=== PATIENT | female | born 1975 | race African-American/Black ===

== ENCOUNTER 2016-03-19 12:12 | Outpatient (CLI) ==
[2016-01-08 10:00] VITALS: BMI 52.0
[2016-03-19 12:58] LABS: ALBUMIN 3.8 g/dL (3.4-5.0); ALBUMIN/GLOBULIN RATIO 0.88; ANION GAP 9.7; BILIRUBIN,TOTAL 0.5 mg/dL (0.00-1.20); BUN/CREATININE RATIO 12.64; CALCIUM 9.2 mg/dL (8.2-10.2); CREATININE 0.87 mg/dL (0.60-1.30); POTASSIUM 3.7 mmol/L (3.5-5.10); TOTAL PROTEIN 8.1 g/dL (6.4-8.2)
--- NOTE | 2016-03-19 13:22 | DI ---
EXAM: Abdomen one view HISTORY: Unspecified abdominal pain COMPARISON: CT 01/09/2016 TECHNIQUE: Single view abdomen was performed. FINDINGS: There are no dilated loops of small bowel. There is air and stool throught the colon. The re are no abnormal calcifications. There are no acute abnormalities of the bones. There are degenera tive changes in the spine. IMPRESSION: Nonobstructive bowel gas pattern. No urinary tract calculi identified.
== END 2016-03-19 12:13 | disposition home or self-care (01) ==
LOC: RAD 12:12
PROVIDERS: ATTEND Nurse Practitioner Family
DX: R10.9 Unspecified abdominal pain (principal)
CPT/HCPCS: 36415; 80053

== ENCOUNTER 2016-08-31 10:40 | Outpatient (CLI) ==
[2016-01-08 10:00] VITALS: BMI 52.0
[2016-08-31 11:06] LABS: BASOPHILS % (AUTO) 0.2 % (0.0-3.0); EOSINOPHILS # (AUTO) 0.3 K/ul (0.0-0.7); EOSINOPHILS % (AUTO) 5.2 % (0.0-7.0); HEMATOCRIT 37.2 % (37.0-47.0); IMMATURE GRANULOCYTE % (AUTO) 0.2 % (0.0-5.0); LYMPHOCYTES # (AUTO) 1.8 K/uL (0.60-3.4); LYMPHOCYTES % (AUTO) 33.5 (10.0-50.0); MEAN CORPUSCULAR HEMOGLOBIN 29.7 pg (27.0-31.0); MEAN CORPUSCULAR HGB CONC 34.9 (31.8-35.4); MEAN CORPUSCULAR VOLUME 84.9 fl (81.0-99.0); MONOCYTES # (AUTO) 0.6 K/uL (0.4-2.0); MONOCYTES % (AUTO) 10.2 (0-10); NEUTROPHILS # (AUTO) 2.8 K/ul (2.0-6.9); NEUTROPHILS % (AUTO) 50.7; PLATELET COUNT 319 10^3/uL (140-440); RED BLOOD COUNT 4.38 10^6/ul (4.20-5.40); WHITE BLOOD COUNT 5.41 K/ul (4.6-10.2)
[2016-08-31 11:10] LABS: BILIRUBIN,URINE Negative (NEGATIVE); KETONES,URINE Negative (NEGATIVE); LEUKOCYTE ESTERASE ,URINE Negative (NEGATIVE); NITRITE,URINE Negative (NEGATIVE); PROTEIN,URINE Negative (NEGATIVE); URINE, BLOOD Negative (NEGATIVE)
[2016-08-31 11:38] LABS: ADD URINE MICROSCOPIC NO
[2016-08-31 11:47] LABS: ALBUMIN 3.7 g/dL (3.4-5.0); ALBUMIN/GLOBULIN RATIO 0.88; ANION GAP 12.7; BILIRUBIN,TOTAL 0.26 mg/dL (0.00-1.20); BUN/CREATININE RATIO 15.47; CALCIUM 9.2 mg/dL (8.2-10.2); CHOL/HDL RATIO 4.5 (4.5-5.5); CREATININE 0.84 mg/dL (0.60-1.30); POTASSIUM 3.7 mmol/L (3.5-5.10); TOTAL PROTEIN 7.9 g/dL (6.4-8.2)
--- NOTE | 2016-08-31 13:18 | DI ---
EXAM: RIGHT FOOT, 3 VIEWS HISTORY: Right foot pain FINDINGS: There is minimal bony spurring of the posterior calcaneus consistent with subtle calcific tendinosis. There is a tiny plantar surface calcaneal spur which is a common normal anatomic varia nt. Bone and joint structures of the foot otherwise appear normal. No ankle joint effusion. IMPRESSION: Mild spurring of the calcaneus otherwise unremarkable.
--- NOTE | 2016-08-31 13:23 | DI ---
EXAM: Three views of the left foot. History: Left foot pain. Findings: No acute fracture or dislocation. No abnormal calcifications or radiopaque foreign lola s. Small plantar spur. Mild degenerative changes seen at the mid foot with small dorsal osteophyte s. Impression: No acute osseous abnormality. If pain persists, recommend further evaluation with MRI.
--- NOTE | 2016-08-31 13:59 | MRI ---
EXAM: MRI of the right upper extremity without contrast COMPARISON: Right hand radiographs 05/01/2013. HISTORY: Right thumb pain. TECHNIQUE: Multiplanar noncontrast MR images of the right hand were acquired using a 1.2 Jimena magn et. FINDINGS: There is subcutaneous edema throughout the hand which is most extensive at the level of t he thumb without a focal drainable fluid collection or discrete drainable fluid collection or focal soft tissue ulcer. This is nonspecific but may represent cellulitis. There is edema adjacent the f irst metacarpophalangeal joint capsule which may be related to synovitis or a capsular sprain. Asse ssment of the collateral ligaments of the first metacarpophalangeal joint is limited as true coronal images through the joint were not obtained though there appear to be intact ulnar and radial collat eral ligament at that site on the sagittal T2-weighted sequence. Small first metacarpophalangeal dinora int effusion. Flexor hallicus longus tenosynovitis with edema throughout the adjacent soft tissues without a full-thickness tendon tear or tendon retraction. Mild degenerative changes of the hand in volving the interphalangeal and metacarpophalangeal joints with small marginal osteophytes. Mild de generative changes at the carpometacarpal, radiocarpal and intercarpal joints with small degenerativ e cyst within the carpus. This includes a 3 mm cyst within the dorsal aspect of the capitate. No audi dence of an acute fracture or osteomyelitis. IMPRESSION: 1. No acute osseous abnormality. Mild degenerative changes. 2. Subcutaneous edema which is most pronounced at the level of the thumb. This may represent cellu litis, though is nonspecific. No focal soft tissue ulcer or drainable fluid collection. 3. Edema adjacent to the first metacarpophalangeal joint capsule with a small joint effusion. This may be related to a capsular sprain or synovitis. No definite evidence of a full-thickness tear of the ulnar or radial collateral ligaments of the first metacarpophalangeal joint on limited assessme nt. 4. Flexor hallicus longus tenosynovitis without a full-thickness tendon tear or or tendon retractio n.
== END 2016-08-31 10:41 | disposition home or self-care (01) ==
LOC: RAD 10:40
PROVIDERS: ATTEND Nurse Practitioner Family
DX: M79.644 Pain in right finger(s) (principal); S69.91XA Unspecified injury of right wrist, hand and finger(s), initial encounter; M79.672 Pain in left foot; M72.2 Plantar fascial fibromatosis; M79.671 Pain in right foot; R35.0 Frequency of micturition; J44.9 Chronic obstructive pulmonary disease, unspecified; I10 Essential (primary) hypertension; H53.8 Other visual disturbances
CPT/HCPCS: 36415; 80053; 80061; 81001; 84443; 85025

== ENCOUNTER 2017-03-01 13:04 | Outpatient (CLI) ==
[2016-01-08 10:00] VITALS: BMI 52.0
--- NOTE | 2017-03-01 15:33 | CT ---
EXAM: CT abdomen pelvis with and without contrast HISTORY: Bilateral flank pain with history of renal stones COMPARISON: CT abdomen pelvis 01/09/2016 and 03/31/2013 TECHNIQUE: Serial axial images of the abdomen pelvis were performed before and after 75 mL is of Omn ipaque IV contrast was administered. These were obtained from the lung bases through the inferior pe lvis. FINDINGS: The lung bases are clear. The right kidney is unremarkable with no hydronephrosis or hydroureter. The left kidney demonstrates a nonobstructing 0.2 cm stone in the superior mid pole. There is no hydronephrosis or hydroureter. The urinary bladder is unremarkable. The liver is unremarkable with no hepatic lesion. The gallbla dder is distended. The abdomen demonstrates a small hiatal hernia. The spleen is unremarkable. The adrenal glands are unremarkable. Pancreas is unremarkable. Stomach is unremarkable. The small bowel in the abdomen pelvis is normal. The colon is unremarkable . The appendix is normal. There is a lobular fat-containing abdominal ventral hernia which is uncha nged from prior exam. The urinary bladder is distended. Pelvic soft tissues are unremarkable. The osseous structures are unremarkable. IMPRESSION: 1. No hydronephrosis or hydroureter with a nonobstructing left renal stone. 2. No acute intra-abdominal or pelvic process. 3. Fat containing periumbilical/ventral hernia with minimal ground-glass stranding. This is stable since 2016.
== END 2017-03-01 13:05 | disposition home or self-care (01) ==
LOC: RAD 13:04
PROVIDERS: ATTEND Nurse Practitioner Family
DX: R10.9 Unspecified abdominal pain (principal); R82.90 Unspecified abnormal findings in urine; Z87.442 Personal history of urinary calculi
CPT/HCPCS: 36415; 80053; 81001; 85025

== ENCOUNTER 2017-03-04 08:07 | Outpatient (CLI) ==
[2016-01-08 10:00] VITALS: BMI 52.0
--- NOTE | 2017-03-05 10:10 | MAMMO ---
EXAM: Digital screening mammogram with 3-D tomosynthesis and CAD HISTORY: Screening mammogram COMPARISON: Mammogram 06/20/2049 FINDINGS: Bilateral CC and MLO views of the breasts were performed digitally and demonstrate scatter ed fibroglandular breast density. Intramammary lymph nodes are unchanged with prominent stable vascul ature. There is no abnormal nodule or calcification. There is no significant interval change. IMPRESSION: No new or suspicious nodule or calcification RECOMMENDATION: Annual screening mammogram BIRADS category II: Benign findings
== END 2017-03-04 08:08 | disposition home or self-care (01) ==
LOC: RAD 08:07
PROVIDERS: ATTEND Nurse Practitioner Family
DX: Z12.31 Encounter for screening mammogram for malignant neoplasm of breast (principal)
CPT/HCPCS: 77067

== ENCOUNTER 2017-05-20 10:12 | Outpatient (CLI) ==
[2016-01-08 10:00] VITALS: BMI 52.0
== END 2017-05-20 10:13 | disposition home or self-care (01) ==
LOC: CAR 10:12
PROVIDERS: ATTEND Surgery
DX: K80.20 Calculus of gallbladder without cholecystitis without obstruction (principal); Z01.818 Encounter for other preprocedural examination; E66.9 Obesity, unspecified; Z68.43 Body mass index [BMI] 50.0-59.9, adult; I10 Essential (primary) hypertension
CPT/HCPCS: 36415; 80053; 85007; 85025; 93005; 93010

== ENCOUNTER 2017-06-04 09:10 | Outpatient (CLI) ==
[2016-01-08 10:00] VITALS: BMI 52.0
--- NOTE | 2017-06-04 10:40 | CT ---
Exam: CT of the abdomen and pelvis without contrast History: Postoperative abdominal pain Technique: [address] of the abdomen and pelvis without intravascular contrast FINDINGS: The lung bases are clear. No significant liver abnormality. The adrenals, pancreas and spl een are unremarkable. The stomach and hiatus are unremarkable.Prior cholecystectomy. There is a sing le 3 mm nonobstructing calculus in the left kidney. The kidneys and collecting system are unremarkab le otherwise. The appendix is normal. Bowel loops demonstrate normal caliber. No inflamatory change seen in the mesentery or retroperitoneum. Vascular structures appear normal by noncontrast CT. Prior hysterectomy. Normal urinary bladder. No pelvic fat inflammation. Normal pelvic colonic loop s. The ovaries are still present. No acute findings of the skeleton. Low grade fat stranding in th e pannus without organizing inflammatory epicenter or mass. Impression: 1. No inflammatory process, bowel or urinary obstruction is seen. 2. Single nonobstructing calculus in the left kidney 3. Stranding in the pannus is probably chronic. No organizing inflammatory mass.
== END 2017-06-04 09:11 | disposition home or self-care (01) ==
LOC: RAD 09:10
PROVIDERS: ATTEND Surgery
DX: G89.18 Other acute postprocedural pain (principal)

== ENCOUNTER 2017-06-08 07:45 | Emergency (ER) ==
[2017-06-08 07:53] VITALS: BP 167/104; TEMP 98.5; BMI 52.7
--- NOTE | 2017-06-08 08:48 | ED.PDOC ---
General ED Provider: Dr. NATALIE BARAJAS Chief Complaint: Urinary Problem Stated Complaint: hematuria Time Seen by Physician: 08:00 (seen with Hazel Lujan RN) Mode of Arrival: Walk-In Information Source: Patient Exam Limitations: No limitations [facility] Nursing and Triage Documentation Reviewed and Agree: Yes (pt noted the hematuria 1 day ago ) Reviewed sepsis parameters & appropriate labs ordered?: Yes System Inflammatory Response Syndrome: Not Applicable Sepsis Protocol: For patient's 13 years and over: Temp is 96.8 and below OR 101 and greater Pulse >90 BPM Resp >20/minute Acutely Altered Mental Status Are patient's symptoms suggestive of a new infection, such as: -Pneumonia -Skin, Soft Tissue -Endocarditis -UTI -Bone, Joint Infection -Implantable Device -Acute Abdominal Infection -Wound Infection -Meningitis -Blood Stream Catheter Infection -Unknown System Inflammatory Response Syndrome: Not Applicable Complaint Exam - Complaint/Exam Patient Complains of: Denies: Vaginal discharge, Pain, Foreign body, Dysuria Onset/Duration: 1 day ago Symptoms Are: Resolved Timing: Intermittent Episodes of Voiding Over Last 12 Hours: 4 (denined trauma denied blood thinners ) Initial Severity: Mild Current Severity: None Location of Pain: Reports: None Character: Reports: Bloody urine (painless on 1 occasion only). Denies: Sharp, Colicky, Burning, Dull Aggravating: Reports: Urination Alleviating: Reports: None Associated Signs and Symptoms: Reports: Hematuria. Denies: Diaphoresis, Back pain, Fever, Dysuria, Constipation, Blood in stool, Rectal pain, Appetite change , Nausea, Vomiting, Decreased urine output, Increased urine frequency, Increased thirst, Decreased activity, Lethargy, Abdominal Pain, Bubble bath use , Vaginal bleeding, Vaginal discharge, Genital swelling, Genital blisters, Retained foreign body Related History: Denies: Similar episode Last Voided: this mornining Ectopic Risk Factors: Reports: None Ovarian Torsion Risk Factors: Reports: None Surgical Obstruction Risk Factors: Reports: None RH Status: Unknown Related Surgical History: Reports: None Abdominal Findings: Present: None (no pelvic exam done) Differential Diagnoses: UTI Review of Systems - Review Of Systems Constitutional: Reports: No symptoms Eyes: Reports: No symptoms Ears, Nose, Mouth, Throat: Reports: No symptoms Respiratory: Reports: No symptoms Cardiac: Reports: No symptoms GI: Reports: No symptoms : Reports: Hematuria Musculoskeletal: Reports: No symptoms Skin: Reports: No symptoms Neurological: Reports: No symptoms Endocrine: Reports: No symptoms Hematologic/Lymphatic: Reports: No symptoms All Other Systems: Reviewed and Negative Past Medical History - Past Medical History Previously Healthy: Yes Endocrine: Reports: None Cardiovascular: Reports: Hypertension Respiratory: Reports: Asthma Hematological: Reports: None Gastrointestinal: Reports: None Genitourinary: Reports: None Neuro/Psych: Reports: None Musculoskeletal: Reports: None Cancer: Reports: None Last Menstrual Period: hysterectomy Other Pertinent Past Medical History: Dental caries - Surgical History General Surgical History: Reports: Hysterectomy, Hernia Repair - Family History Family History: Reports: None - Social History Smoking Status: Former smoker Hx Substance Use: No Alcohol Screening: None Physical Exam - Physical Exam Appearance: Well-appearing, No pain distress, Well-nourished Eyes: NOHEMI, EOMI, Conjunctiva clear ENT: Ears normal, Nose normal, Oropharynx normal Respiratory: Airway patent, Breath sounds clear, Breath sounds equal, Respirations nonlabored Cardiovascular: RRR, Pulses normal, No rub, No murmur GI/: Soft, Nontender, No masses, Bowel sounds normal, No Organomegaly Musculoskeletal: Normal strength, ROM intact, No edema, No calf tenderness Skin: Warm, Dry, Normal color Neurological: Sensation intact, Motor intact, Reflexes intact, Cranial nerves intact, Alert, Oriented Psychiatric: Affect appropriate, Mood appropriate Critical Care Note - Critical Care Note Total Time (mins): 0 Course - Course Orders, Labs, Meds: Orders Category Date Time Status CBC W/ AUTO DIFF Stat LAB 06/08/17 08:23 Ordered COMPREHENSIVE METABOLIC PANEL Stat LAB 06/08/17 08:23 Ordered PARTIAL THROMBOPLASTIN TIME Stat LAB 06/08/17 08:23 Ordered PT WITH INR Stat LAB 06/08/17 08:23 Ordered URINALYSIS C & S IF INDICATED Stat LAB 06/08/17 08:[address] ABD/PEL WO RENAL STONE PROT Stat RADS 06/08/17 08:23 Ordered Vital Signs: Temp Pulse Resp BP Pulse Ox 06/08/17 07:46 98.5 F 92 H 20 167/104 H 98 Departure - Departure Time of Disposition: 10:00 (may was present at all times , renal cancer discussed in detail) Disposition: HOME SELF-CARE Discharge Problem: Urinary symptoms Hematuria Qualifiers: Hematuria type: gross Qualified Code(s): R31.0 - Gross hematuria Instructions: Hematuria (ED) Condition: Good Pt referred to PMD for follow-up: Yes IPMP verified?: No Additional Instructions: Please call your Family Physician as soon as possible to schedule a follow-up appointment.have your urine test done on 1 or more occasions to make sure there is no blood in the urine bloody urine may be a clue to kidney,or related structures cancer . this kind of cancer is painless associated with bloody urine Allergies/Adverse Reactions: Allergies lisinopril Adverse Reaction (Verified 06/08/17 07:55) GI discomfort
--- NOTE | 2017-06-08 09:45 | CT ---
EXAM: CT of the abdomen pelvis without contrast History: Gross hematuria. Comparison: CT abdomen pelvis 06/04/2017 Technique: Multiplanar CT images through the abdomen pelvis were obtained without the administration of IV contrast. Findings: Lung bases are free of consolidation. Subsegmental atelectasis is seen within the lower l ungs. The visualized osseous structures unchanged. No acute osseous abnormality identified. Promin ent facet hypertrophy within the lower lumbar spine. Previous cholecystectomy. No peripancreatic inflammation. Adrenal glands are unremarkable. No foca l liver or splenic lesions. 2 mm calculus seen within the inferior pole of the left kidney. No righ t renal calculi. No ureteral calculi. No bowel obstruction. No free air. No ascites. No bladder wall thickening. No perirectal inflammation. Uterus is not seen. The appendix is normal. No ricketts e in the subcutaneous stranding within the lower anterior abdominal wall. No abscess. No obvious re nal masses are identified within limitations of this noncontrast study. Impression: No acute intra-abdominal or pelvic process and no specific cause for patient's hematuria identified by CT. Stable small nonobstructing left renal calculus.
== END 2017-06-08 10:07 | disposition home or self-care (01) ==
LOC: ED 07:45
DX: R31.0 Gross hematuria (principal); I10 Essential (primary) hypertension
CPT/HCPCS: 36415; 74176; 80053; 81001; 85025; 85610; 85730; 87086; 99283

== ENCOUNTER 2017-09-13 11:48 | Emergency (ER) ==
[2017-09-13 11:56] VITALS: BP 157/94; TEMP 98; BMI 50.8
--- NOTE | 2017-09-13 13:03 | ED.PDOC ---
General ED Provider: Dr. NATALIE BARAJAS Chief Complaint: Abdominal Pain Stated Complaint: abdominal pain Time Seen by Physician: 12:00 (seen with ada at all times ) Mode of Arrival: Walk-In Information Source: Patient Exam Limitations: No limitations [facility] and Triage Documentation Reviewed and Agree: Yes Does patient meet sepsis criteria?: No System Inflammatory Response Syndrome: Not Applicable Sepsis Protocol: For patient's 13 years and over: Temp is 96.8 and below OR 101 and greater Pulse >90 BPM Resp >20/minute Acutely Altered Mental Status Are patient's symptoms suggestive of a new infection, such as: -Pneumonia -Skin, Soft Tissue -Endocarditis -UTI -Bone, Joint Infection -Implantable Device -Acute Abdominal Infection -Wound Infection -Meningitis -Blood Stream Catheter Infection -Unknown GI Complaint Exam - Abdominal Pain Complaint/Exam Onset: Gradual Duration: chronic issue worse today Symptoms Are: Still present Timing: Intermittent Initial Severity: Mild Current Severity: Mild Location of Pain: Diffuse Character: Reports: Cramping Aggravating: Reports: None Alleviating: Reports: None Associated Signs and Symptoms: Denies: Diaphoresis, Fever, Cough, Chest pain, Dizziness, Back pain, Constipation, Blood in stool, Dysuria, Urinary frequency, Decreased urine output, Decreased appetite, Vaginal bleeding, Vaginal discharge , Nausea, Vomiting, Diarrhea, Sore throat, Decreased activity Related History: Reports: Similar episode (ulcerative colitis) AAA Risk Factors: Reports: Hypertension Cardiac Risk Factors: Reports: Hypertension Ectopic Risk Factors: Reports: None Ovarian Torsion Risk Factors: Reports: None Surgical Obstruction Risk Factors: Reports: None Related Surgical History: Reports: None Patient Rh Status: Unknown Abdominal Findings: Present: None Differential Diagnoses: AMI, Appendicitis, Bowel Obstruction, Constipation, Pancreatitis, Irritable Bowel Syndrome Review of Systems - Review Of Systems Constitutional: Reports: No symptoms Eyes: Reports: No symptoms Ears, Nose, Mouth, Throat: Reports: No symptoms Respiratory: Reports: No symptoms Cardiac: Reports: No symptoms GI: Reports: Abdominal pain : Reports: No symptoms Musculoskeletal: Reports: No symptoms Skin: Reports: No symptoms Neurological: Reports: No symptoms Endocrine: Reports: No symptoms Hematologic/Lymphatic: Reports: No symptoms All Other Systems: Reviewed and Negative Past Medical History - Past Medical History Previously Healthy: Yes Endocrine: Reports: None Cardiovascular: Reports: Hypertension Respiratory: Reports: Asthma Hematological: Reports: None Gastrointestinal: Reports: None Genitourinary: Reports: None Neuro/Psych: Reports: None Musculoskeletal: Reports: None Cancer: Reports: None Last Menstrual Period: n/a Other Pertinent Past Medical History: Dental caries - Surgical History General Surgical History: Reports: Hysterectomy, Hernia Repair - Family History Family History: Reports: None - Social History Smoking Status: Former smoker Hx Substance Use: No Alcohol Screening: None Physical Exam - Physical Exam Appearance: Well-appearing, No pain distress, Well-nourished Eyes: NOHEMI, EOMI, Conjunctiva clear ENT: Ears normal, Nose normal, Oropharynx normal Respiratory: Airway patent, Breath sounds clear, Breath sounds equal, Respirations nonlabored Cardiovascular: RRR, Pulses normal, No rub, No murmur GI/: Soft, Nontender, No masses, Bowel sounds normal, No Organomegaly Musculoskeletal: Normal strength, ROM intact, No edema, No calf tenderness Skin: Warm, Dry, Normal color Neurological: Sensation intact, Motor intact, Reflexes intact, Cranial nerves intact, Alert, Oriented Psychiatric: Affect appropriate, Mood appropriate Critical Care Note - Critical Care Note Total Time (mins): 0 Course - Course Hematology/Chemistry: 09/13/17 12:30 09/13/17 12:30 Orders, Labs, Meds: Lab Review 09/13/17 09/13/17 12:30 12:30 WBC 4.79 RBC 4.25 Hgb 12.4 Hct 35.6 L MCV 83.8 MCH 29.2 MCHC 34.8 RDW Coeff of Anette 12.4 Plt Count 281 Immature Gran % (Auto) 0.2 Neut % (Auto) 48.4 Lymph % (Auto) 38.2 Barnes % (Auto) 8.8 Eos % (Auto) 4.0 Baso % (Auto) 0.4 Immature Gran # (Auto) 0.0 Neut # (Auto) 2.3 Lymph # (Auto) 1.8 Barnes # (Auto) 0.4 Eos # (Auto) 0.2 Baso # (Auto) 0.0 Sodium 136 Potassium 3.9 Chloride 105 Carbon Dioxide 22 Anion Gap 12.9 BUN 10 Creatinine 0.92 Estimated GFR (MDRD) 81.00 BUN/Creatinine Ratio 10.86 Glucose 108 Calcium 9.0 Total Bilirubin 0.4 AST 16 ALT 14 Alkaline Phosphatase 77 Total Protein 7.5 Albumin 3.6 Globulin 3.9 Albumin/Globulin Ratio 0.92 Amylase 51 Lipase 27 Orders Category Date Time Status AMYLASE Stat LAB 09/13/17 12:30 Completed CBC W/ AUTO DIFF Stat LAB 09/13/17 12:30 Completed COMPREHENSIVE METABOLIC PANEL Stat LAB 09/13/17 12:30 Completed LIPASE Stat LAB 09/13/17 12:[address] ABDOMEN/PELVIS WO CONTRAST Stat RADS 09/13/17 12:10 Taken Vital Signs: Temp Pulse Resp BP Pulse Ox 09/13/17 11:48 98.0 F 79 20 157/94 H 97 Departure - Departure Time of Disposition: 13:30 Disposition: HOME SELF-CARE Discharge Problem: Abdominal pain Instructions: Chronic Abdominal Pain (ED) Condition: Good Pt referred to PMD for follow-up: Yes IPMP verified?: No Additional Instructions: Please call your Family Physician as soon as possible to schedule a follow-up appointment. Allergies/Adverse Reactions: Allergies lisinopril Adverse Reaction (Verified 09/13/17 11:55) GI discomfort Disposition Discussed With: Patient, Family
--- NOTE | 2017-09-13 13:05 | CT ---
EXAM: CT Abdomen without contrast. CT Pelvis without contrast. HISTORY: Generalized abdominal pain. COMPARISON: 06/04/2017, 03/01/2017. TECHNIQUE: Multiple axial images of the abdomen and pelvis were obtained without intravenous contras t. Images were reformatted in the sagittal and coronal plane. FINDINGS: Please note that evaluation of the abdominal and pelvic structures is limited due to lack of intravenous contrast. Lung bases are clear.. Degenerative changes are seen in the spine. Gallbladder is absent. The right lobe of the liver is enlarged but stable. The liver, pancreas, spl een, and adrenal glands demonstrate normal contour. Punctate nonobstructing left renal calculus and c oronal image 70 is stable. No hydronephrosis detected. The bowel is normal in course and caliber without evidence for obstruction or inflammatory process. The appendix is normal. There is a fat-containing hernia above the level of the umbilicus with defec t measuring approximately 0.8 cm on sagittal image 72. Fat stranding surrounding the hernia sac note d. This is a stable finding. Uterus is absent. Urinary bladder is unremarkable. No free fluid or free air detected. IMPRESSION: 1. No acute abnormality within the abdomen or pelvis. 2. Stable fat-containing ventral hernia with adjacent inflammation. 3. Stable left nephrolithiasis.
== END 2017-09-13 13:45 | disposition home or self-care (01) ==
LOC: ED 11:48
DX: R10.9 Unspecified abdominal pain (principal); I10 Essential (primary) hypertension
CPT/HCPCS: 36415; 80053; 82150; 83690; 85025; 99283

== ENCOUNTER 2017-09-22 07:56 | Outpatient (CLI) | END 2017-09-22 07:57 | disposition home or self-care (01) | LOC: LAB 07:56 | PROVIDERS: ATTEND Nurse Practitioner Family | DX: R10.9 Unspecified abdominal pain (principal) | CPT/HCPCS: 36415; 81001; 86677 ==

== ENCOUNTER 2018-03-22 11:17 | Outpatient (CLI) | END 2018-03-22 11:18 | disposition home or self-care (01) | LOC: RHC-LAB 11:17 | PROVIDERS: ATTEND Nurse Practitioner Family | DX: R05 Cough (principal) | CPT/HCPCS: 87502 ==

== ENCOUNTER 2018-06-27 11:32 | Outpatient (CLI) | END 2018-06-27 11:33 | disposition home or self-care (01) | LOC: RHC-LAB 11:32 | PROVIDERS: ATTEND Nurse Practitioner Family | DX: I10 Essential (primary) hypertension (principal); E66.9 Obesity, unspecified; R10.9 Unspecified abdominal pain; R14.0 Abdominal distension (gaseous) | CPT/HCPCS: 36415; 80053; 80061; 84443; 85025; 86677 ==

== ENCOUNTER 2018-07-21 09:26 | Outpatient (CLI) ==
--- NOTE | 2018-07-21 11:36 | US ---
EXAM: Complete abdominal ultrasound. History: Abdominal pain. Comparison: CT abdomen pelvis 09/13/2017 Technique: Multiple sonographic images through the abdomen were obtained. Color duplex Doppler was used to interrogate vascular flow. Findings: The visualized abdominal aorta and IVC demonstrate normal caliber. The liver is not enlarged. The p ancreas is unremarkable. The liver is not echogenic. There is antegrade flow within the main portal vein. Status post cholecystectomy. No abdominal ascites. Common bile duct measures 0.4 cm in krish mono. Spleen is not enlarged. Both kidneys measure normal in long length without evidence for hydronephrosis or mass. Question 5 m m calculus within the right kidney versus artifact. Impression: 1. Status post cholecystectomy. 2. No acute sonographic findings. 3. Question small nonobstructing right renal calculus
== END 2018-07-21 09:27 | disposition home or self-care (01) ==
LOC: RAD 09:26
PROVIDERS: ATTEND Internal Medicine Gastroenterology
DX: Z90.49 Acquired absence of other specified parts of digestive tract (principal)